=== PATIENT | female | born 1970 | race Caucasian/White ===

== ENCOUNTER 2018-05-16 12:42 | Emergency (ER) | payer OTHER, BC ==
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
[2018-05-16 14:56] VITALS: BP 129/76
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
== END 2018-05-16 14:52 | disposition home or self-care (01) ==
LOC: ER 12:42
DX: S16.1XXA Strain of muscle, fascia and tendon at neck level, initial encounter (principal); M54.5 Low back pain; V49.40XA Driver injured in collision with unspecified motor vehicles in traffic accident, initial encounter; M50.323 Other cervical disc degeneration at C6-C7 level; M62.838 Other muscle spasm
CPT/HCPCS: 72040; 72110; 99284